=== PATIENT | male | born 1985 | race Caucasian/White ===

== ENCOUNTER 2017-07-31 16:52 | Emergency (ER) | payer OTHER ==
[~2017-07-31] VITALS: Ht 177.8 cm; Wt 65.8 kg
[~2017-07-31 16:52] MED LIST: ALPRAZOLAM1 MG PO; AUGMENTIN 875875 MG PO; BISCOLAX10 MG RC; COLACE100 MG PO; DILAUDID 2 MG TA2 MG PO; FLEXERIL PO; HYDROCODONE-AP1 EAC6 PO; NORCO 5-325 TA1 EACH PO; PERCOCET 10-321 EACH PO; PREVACID30 MG PO; PROMETHAZINE HC25 M1 PO; SENOKOT-S1 TA1 PO
[2017-07-31] MEDS ORDERED: ADDERALL 10 MG10 MG PO (17:00)
[2017-07-31] MEDS ORDERED: ZANAFLEX2 MG PO (17:01)
[2017-07-31] MEDS ORDERED: CELEBREX 200 M200 M1 PO (17:01)
[2017-07-31] MEDS ORDERED: PERCOCET PO (17:01)
[2017-07-31] MEDS ORDERED: BENADRYL25 MG PO (18:39)
[2017-07-31] MEDS ORDERED: PREDNISONE 10 M10 MG PO (18:39)
[2017-07-31] MEDS ORDERED: PEPCID20 MG PO (18:39)
[2017-07-31 18:46] VITALS: BP 97/52
--- NOTE | 2017-08-01 17:49 | EKG ---
[place] [address] ELECTROCARDIOGRAM REPORT Name: JONATHAN ESCOTO Arvind Room: [facility]#: [id number] Admission: 07/31/17 Attend Phys: Discharge: 07/31/17 Date of : 85 Report #: [id number] THIS REPORT FOR: //name// [facility] ED Test Date: 2017-07-31 Test Time: 17:43:51 Pat Name: JONATHAN ESCOTO Department: Room: Gender: Consultant Technology: : 1985 Requested By: Chely Velasco Order Number: [id number] MD: Leonel Robbins Measurements Intervals [place] Rate: 90 P: 41 WA: 133 QRS: 55 QRSD: 94 T: 99 QT: 358 QTc: 438 Interpretive Statements Sinus rhythm Compared to ECG 03/22/2007 16:50:58 No significant changes Electronically Signed On 08-01-2017 17:49:29 CDT by Leonel Robbins [email or web address] <ELECTRONICALLY SIGNED> By: Leonel Robbins MD, [facility] 08/01/17 1749 D: 04/1742 42 Leonel Robbins MD, FACC /EPI
== END 2017-07-31 18:46 | disposition home or self-care (01) ==
LOC: M.ERS 16:52
DX: T78.3XXA Angioneurotic edema, initial encounter (principal)